=== PATIENT | female | born 1990 | race Caucasian/White ===

== ENCOUNTER 2016-12-25 17:44 | Emergency (ER) | payer BC ==
[~2016-12-25] VITALS: Ht 154.9 cm; Wt 87.1 kg
[~2016-12-25 17:44] MED LIST: ACYC-113 PO; FLUO20CA19 PO; FLUO40CA2 PO; HYDR-3241 PO; NONE PER PT; ONDA-39 PO; OXYC1TAB7 PO
[2016-12-25] MEDS ORDERED: MORPHINE SULFATE 4 MG/ML, 1ML IVPush PRN (18:30)
[2016-12-25] MEDS ORDERED: SODIUM CHLORIDE FLUSH 10ML SYR IVF ONE (18:30)
[2016-12-25] MEDS ORDERED: ONDANSETRON 2MG/ML, 2ML IVPush ONE (18:30)
[2016-12-25] MEDS ORDERED: SODIUM CHLORIDE 0.9% 1,000ML IVBOLUS ONE (18:30)
[2016-12-25 19:03] LABS: PATH.CAST-FLAG NOT PRESENT; SPERM-FLAG NOT PRESENT; SRC-FLAG NOT PRESENT; XTAL-FLAG NOT PRESENT; YLC-FLAG NOT PRESENT
[2016-12-25 19:34] LABS: ASPARTATE AMINO TRANSFERASE 14 U/L (15-37); BLOOD UREA NITROGEN 10 mg/dL (7-18)
[2016-12-25] MEDS ORDERED: ONDANSETRON ODT 4 MG ONE (20:15)
[2016-12-25] MEDS ORDERED: HYDROcodone/APAP 5/325 TABLET ONE (20:15)
[2016-12-25 20:21] VITALS: BP 114/57
[2016-12-25] MEDS ORDERED: ONDANSETRON ODT 4 MG PO ONE (20:30)
[2016-12-25] MEDS ORDERED: HYDROcodone/APAP 5/325 TABLET PO ONE (20:30)
== END 2016-12-25 20:35 | disposition home or self-care (01) ==
LOC: ED 20:00
DX: R10.31 Right lower quadrant pain (principal); R11.2 Nausea with vomiting, unspecified; Z88.5 Allergy status to narcotic agent
CPT/HCPCS: 36415; 76830; 80053; 81001; 84703; 85025; 87086; 96360; 99285; J7030; Q0162

== ENCOUNTER 2017-02-22 17:01 | Emergency (ER) | payer BC ==
[~2017-02-22] VITALS: Ht 154.9 cm; Wt 89.8 kg
[~2017-02-22 17:01] MED LIST changes: -ONDA-39 PO; +ONDA4TAB12 PO
[2017-02-22 17:04] VITALS: BP 117/72
[2017-02-22] MEDS ORDERED: SODIUM CHLORIDE 0.9% 1,000 ML IV ONE (17:10)
[2017-02-22 17:25] LABS: HEMATOCRIT 38.6 % (34.6-47.8); HEMOGLOBIN 12.8 g/dL (11.7-16.4); WHITE BLOOD COUNT 8.8 x10^3/uL (3.4-10)
[2017-02-22] MEDS ORDERED: FAMOTIDINE 20 MG/2 ML IVP ONE (17:30)
[2017-02-22] MEDS ORDERED: SODIUM CHLORIDE 0.9% 1,000ML IVBOLUS ONE (17:30)
[2017-02-22] MEDS ORDERED: ONDANSETRON 2MG/ML, 2ML IVPush ONE (17:30)
[2017-02-22 17:36] LABS: ASPARTATE AMINO TRANSFERASE 15 U/L (15-37); BLOOD UREA NITROGEN 14 mg/dL (7-18)
[2017-02-22] MEDS ORDERED: FAMOTIDINE 20 MG/2 ML ONE (18:46)
[2017-02-22] MEDS ORDERED: ONDANSETRON 2MG/ML, 2ML ONE (18:46)
== END 2017-02-22 21:00 | disposition home or self-care (01) ==
LOC: ED 20:54
DX: R11.2 Nausea with vomiting, unspecified (principal); R10.13 Epigastric pain; Z90.49 Acquired absence of other specified parts of digestive tract; Z88.6 Allergy status to analgesic agent
CPT/HCPCS: 36415; 74020; 76700; 80053; 81001; 83690; 84703; 85025; 87086; 96361; 96374; 96375; 99285; J2405; J7030; S0028

== ENCOUNTER 2017-03-31 18:01 | Emergency (ER) | payer BC ==
[~2017-03-31] VITALS: Ht 154.9 cm; Wt 91.1 kg
[2017-03-31] MEDS ORDERED: SODIUM CHLORIDE FLUSH 10ML SYR IVF ONE ×2 (18:30→19:30)
[2017-03-31 18:48] LABS: HEMATOCRIT 39.7 % (34.6-47.8); HEMOGLOBIN 12.9 g/dL (11.7-16.4); WHITE BLOOD COUNT 9.5 x10^3/uL (3.4-10)
[2017-03-31 18:57] LABS: ASPARTATE AMINO TRANSFERASE 27 U/L (15-37); BLOOD UREA NITROGEN 11 mg/dL (7-18)
[2017-03-31] MEDS ORDERED: MORPHINE SULFATE 4 MG/ML, 1ML ONE (19:20)
[2017-03-31] MEDS ORDERED: ONDANSETRON 2MG/ML, 2ML ONE (19:20)
[2017-03-31] MEDS ORDERED: ONDANSETRON 2MG/ML, 2ML IVPush ONE (19:30)
[2017-03-31] MEDS ORDERED: SODIUM CHLORIDE 0.9% 1,000ML IVBOLUS ONE (19:30)
[2017-03-31] MEDS ORDERED: MORPHINE SULFATE 4 MG/ML, 1ML IVPush PRN (19:30)
[2017-03-31 21:17] VITALS: BP 126/60
[2017-03-31] MEDS ORDERED: OMNIPAQUE 350 MG/ML, 100ML BOTTLE ONE (22:36)
== END 2017-03-31 22:10 | disposition home or self-care (01) ==
LOC: ED 20:46
DX: R10.84 Generalized abdominal pain (principal); R10.2 Pelvic and perineal pain; R11.2 Nausea with vomiting, unspecified; N80.9 Endometriosis, unspecified
CPT/HCPCS: 36415; 74177; 76830; 80053; 81003; 83690; 84703; 85025; 96361; 96374; 96375; 99285; J2405; J7030; Q9967

== ENCOUNTER 2017-05-19 00:01 | Emergency (ER) | payer BC ==
[~2017-05-19] VITALS: Ht 152.4 cm; Wt 94.3 kg
[2017-05-19 00:02] VITALS: BP 142/83
[2017-05-19] MEDS ORDERED: ONDANSETRON ODT 8 MG PO ONE (01:00)
[2017-05-19] MEDS ORDERED: HYDROcodone/APAP 10/325 MG TABLET ONE (01:02)
[2017-05-19] MEDS ORDERED: ONDANSETRON ODT 4 MG ONE (01:17)
[2017-05-19] MEDS ORDERED: HYDROcodone/APAP 10/325 MG TABLET PO ONE (01:30)
[2017-05-19] MEDS ORDERED: KETOROLAC 30 MG/1 ML IM ONE (02:30)
[2017-05-19] MEDS ORDERED: KETOROLAC 30 MG/1 ML ONE (03:30)
== END 2017-05-19 04:19 | disposition home or self-care (01) ==
LOC: ED 01:22
DX: K08.89 Other specified disorders of teeth and supporting structures (principal); I10 Essential (primary) hypertension; R11.0 Nausea; F32.9 Major depressive disorder, single episode, unspecified; Z90.49 Acquired absence of other specified parts of digestive tract; Z98.890 Other specified postprocedural states
CPT/HCPCS: 96372; 99283; J1885; Q0162

== ENCOUNTER 2017-09-24 04:53 | Emergency (ER) | payer OTHER ==
[~2017-09-24] VITALS: Ht 154.9 cm; Wt 101.2 kg
[2017-09-24] MEDS ORDERED: ACETAMINOPHEN 500 MG TABLET ONE (06:09)
[2017-09-24] MEDS ORDERED: ONDANSETRON ODT 4 MG ONE (06:09)
[2017-09-24] MEDS ORDERED: ACETAMINOPHEN 500 MG TABLET PO ONE (06:30)
[2017-09-24] MEDS ORDERED: ONDANSETRON ODT 4 MG PO ONE (06:30)
[2017-09-24 06:40] LABS: BASOPHILS # (AUTO) 0.04 x10^3/uL (0-0.1); BASOPHILS % (AUTO) 0 % (0-1); EOSINOPHILS # (AUTO) 0.23 x10^3/uL (0-0.4); EOSINOPHILS % (AUTO) 2 % (1-7); LYMPHOCYTES # (AUTO) 3.08 x10^3/uL (1-3.4); LYMPHOCYTES % (AUTO) 28 % (22-44); MD NO; MEAN CORPUSCULAR HEMOGLOBIN 26.7 pg (27.0-34.8); MEAN CORPUSCULAR HGB CONC 32.7 g/dL (32.4-35.8); MEAN CORPUSCULAR VOLUME 81.7 fL (80-100); MEAN PLATELET VOLUME 8.2 fL (7.4-10.4); MONOCYTES # (AUTO) 0.76 x10^3/uL (0.2-0.8); MONOCYTES % (AUTO) 7 % (2-9); NEUTROPHILS # (AUTO) 6.91 x10^3/uL (1.8-6.8); NEUTROPHILS % (AUTO) 63 % (42-75); PLATELET COUNT 390 x10^3/uL (130-400); RED BLOOD COUNT 4.68 x10^6/uL (3.82-5.3); RED CELL DISTRIBUTION WIDTH 15.6 % (9.6-15.2)
[2017-09-24 06:51] LABS: ALANINE AMINOTRANSFERASE 51 U/L (12-78); ALBUMIN 3.1 g/dL (3.4-5.0); ANION GAP 8 mmol/L (5-15); CALCIUM 8.6 mg/dL (8.5-10.1); CHLORIDE 107 mmol/L (98-107); CREATININE 0.54 mg/dL (0.55-1.02)
[2017-09-24 06:55] LABS: ALKALINE PHOSPHATASE 126 U/L (45-117); BILIRUBIN,TOTAL 0.3 mg/dL (0.2-1.0); TOTAL PROTEIN 7.6 g/dL (6.4-8.2)
[2017-09-24 07:58] VITALS: BP 96/44
== END 2017-09-24 08:06 | disposition home or self-care (01) ==
LOC: ED 07:14
DX: J00 Acute nasopharyngitis [common cold] (principal); J01.10 Acute frontal sinusitis, unspecified; K52.9 Noninfective gastroenteritis and colitis, unspecified; G43.909 Migraine, unspecified, not intractable, without status migrainosus; I10 Essential (primary) hypertension; Z90.49 Acquired absence of other specified parts of digestive tract
CPT/HCPCS: 36415; 71046; 80053; 84703; 85025; 99285; Q0162

== ENCOUNTER 2018-03-22 18:50 | Emergency (ER) | payer MEDICAID, OTHER ==
[~2018-03-22] VITALS: Ht 154.9 cm; Wt 97.7 kg
[2018-03-22] MEDS ORDERED: ONDANSETRON ODT 4 MG PO ONE (19:30)
[2018-03-22] MEDS ORDERED: ONDANSETRON ODT 4 MG ONE (19:33)
[2018-03-22 19:46] LABS: BASOPHILS # (AUTO) 0.08 x10^3/uL (0-0.1); BASOPHILS % (AUTO) 1 % (0-1); EOSINOPHILS # (AUTO) 0.01 x10^3/uL (0-0.4); EOSINOPHILS % (AUTO) 0 % (1-7); LYMPHOCYTES # (AUTO) 2.72 x10^3/uL (1-3.4); LYMPHOCYTES % (AUTO) 19 % (22-44); MD NO; MEAN CORPUSCULAR HEMOGLOBIN 27.6 pg (27.0-34.8); MEAN CORPUSCULAR HGB CONC 32.9 g/dL (32.4-35.8); MEAN CORPUSCULAR VOLUME 83.9 fL (80-100); MONOCYTES % (AUTO) 4 % (2-9); NEUTROPHILS # (AUTO) 11.25 x10^3/uL (1.8-6.8); NEUTROPHILS % (AUTO) 77 % (42-75); PLATELET COUNT 406 x10^3/uL (130-400); RED BLOOD COUNT 4.66 x10^6/uL (3.82-5.3); RED CELL DISTRIBUTION WIDTH 15.5 % (9.6-15.2)
[2018-03-22 19:55] VITALS: BP 119/53
[2018-03-22 19:57] LABS: ALANINE AMINOTRANSFERASE 25 U/L (12-78); ALBUMIN 3.4 g/dL (3.4-5.0); ANION GAP 11 mmol/L (5-15); CHLORIDE 106 mmol/L (98-107); CREATININE 0.47 mg/dL (0.55-1.02)
[2018-03-22] MEDS ORDERED: SODIUM CHLORIDE 0.9% 1,000ML IVBOLUS ONE (20:00)
[2018-03-22] MEDS ORDERED: SODIUM CHLORIDE FLUSH 10ML SYR IVF ONE (20:00)
[2018-03-22 20:04] LABS: MICROSCOPIC INDICATED
[2018-03-22 20:14] LABS: CULTURE INDICATED? YES
[2018-03-22 20:14] LABS: ALKALINE PHOSPHATASE 93 U/L (45-117); BILIRUBIN,TOTAL 0.4 mg/dL (0.2-1.0); TOTAL PROTEIN 7.8 g/dL (6.4-8.2)
== END 2018-03-22 21:45 | disposition home or self-care (01) ==
LOC: ED 21:30
DX: O26.891 Other specified pregnancy related conditions, first trimester (principal); O21.9 Vomiting of pregnancy, unspecified; R11.0 Nausea; Z3A.01 Less than 8 weeks gestation of pregnancy
CPT/HCPCS: 36415; 80053; 81001; 84702; 84703; 85025; 87086; 93005; 99285; Q0162

== ENCOUNTER 2021-01-18 08:33 | Emergency (ER) | payer MEDICAID ==
[~2021-01-18] VITALS: Ht 157.5 cm; Wt 75.3 kg
[~2021-01-18 08:33] MED LIST changes: -ACYC-113 PO; +ACYC200C13 PO; +ONDA-89 PO; -ONDA4TAB12 PO
--- NOTE | 2021-01-18 09:00 | NUR ---
PT PRESENTS TO ED EITH C/O PAIN IN R FLANK AND PAINFUL URINATION X2DAYS. PT STATES BLOOD IN URINE YESTERDAY. PT DENIES N/V/D, DENIES HX OF KIDNEY STONES. PT A&O, RESPS EVEN AND UNLABORED, VSS, NADN. KATIE LAW AT BEDSIDE FOR EVAL.
[2021-01-18] MEDS ORDERED: ONDANSETRON 2MG/ML, 2ML ONE (09:08)
[2021-01-18] MEDS ORDERED: KETOROLAC 30 MG/1 ML ONE (09:08)
[2021-01-18 09:22] LABS: BASOPHILS % (AUTO) 1 % (0-1); EOSINOPHILS % (AUTO) 18 % (1-7); LYMPHOCYTES % (AUTO) 26 % (22-44); MEAN CORPUSCULAR HEMOGLOBIN 29.2 pg (27.0-34.8); MEAN PLATELET VOLUME 8.4 fL (7.4-10.4); MONOCYTES % (AUTO) 8 % (2-9); NEUTROPHILS % (AUTO) 47 % (42-75); PLATELET COUNT 353 x10^3/uL (130-400); RED BLOOD COUNT 4.78 x10^6/uL (3.82-5.3)
[2021-01-18 09:26] LABS: MICROSCOPIC AUTO
[2021-01-18] MEDS ORDERED: KETOROLAC 30 MG/1 ML IVPush ONE (09:30)
[2021-01-18] MEDS ORDERED: SODIUM CHLORIDE FLUSH 10ML SYR IVF ONE (09:30)
[2021-01-18] MEDS ORDERED: ONDANSETRON 2MG/ML, 2ML IVPush ONE (09:30)
[2021-01-18 09:33] LABS: ALANINE AMINOTRANSFERASE 17 U/L (12-78); ALBUMIN 3.3 g/dL (3.4-5.0); ANION GAP 7 mmol/L (5-15); CALCIUM 8.6 mg/dL (8.5-10.1); CHLORIDE 109 mmol/L (98-107); CREATININE 0.51 mg/dL (0.55-1.02)
[2021-01-18 09:38] LABS: ALKALINE PHOSPHATASE 74 U/L (45-117); BILIRUBIN,TOTAL 0.3 mg/dL (0.2-1.0); TOTAL PROTEIN 7.1 g/dL (6.4-8.2)
--- NOTE | 2021-01-18 10:00 | NUR ---
pt taken to ct at this time
--- NOTE | 2021-01-18 10:08 | NUR ---
pt back from CT, a&o, resps even and unlabored, vss, nadn. awaiting CT results and dispo.
--- NOTE | 2021-01-18 11:04 | NUR ---
pt resting in bed, vss, nadn. all labs/CT resulted, awaiting MD recheck and dispo.
--- NOTE | 2021-01-18 11:28 | NUR ---
ermd Law at bedside to discuss POC
[2021-01-18 11:52] VITALS: BP 111/69
--- NOTE | 2021-01-18 12:06 | NUR ---
pt eductaed on discharge instructions, verbalized undertsanding. pt ambulatory to discharge desk with steady gait.
== END 2021-01-18 12:08 | disposition home or self-care (01) ==
LOC: ED 11:47
DX: R10.9 Unspecified abdominal pain (principal); R30.0 Dysuria; R31.9 Hematuria, unspecified; Z90.89 Acquired absence of other organs
CPT/HCPCS: 36415; 74176; 80053; 81001; 83690; 84703; 85025; 87086; 96374; 96375; 99285; J1885; J2405